=== PATIENT | female | born 1975 | race Hispanic/Latino ===

== ENCOUNTER 2018-03-29 15:40 | Observation (INO) | payer MEDICAID, OTHER ==
[2018-03-29] MEDS ORDERED: Lidocaine 5% Patch TD STA (16:50)
--- NOTE | 2018-03-29 17:00 | ED PDOC ---
Arrival/HPI - General Chief Complaint: Back Pain Time Seen by Provider: 03/29/18 16:31 Historian: Patient - History of Present Illness Narrative History of Present Illness (Text): 03/29/18 16:57 42 yo F with no significant PMH, reports 1 wk h/o pain in the L lower back, which is now radiating to the L leg, reports having similar episodes of back pain, but not an intense as today. Reports taking motrin with minimal relief. Reports no trauma, injury, heavy lifting, IV drug use, recent travel, urinary symptoms, abdominal pain, N/V. Otherwise: (-) paresthesias, (-) weakness, (-) acute bowel or bladder dysfunction, (-) fever. Has history of prior back problem. PMD Vidyha Past Medical History - Infectious Disease Hx of Infectious Diseases: None - Tetanus Immunization Tetanus Immunization: Unknown - Reproductive Menopause: No Currently : No - Past Medical History Past Medical History: No Previous - Cardiac Hx Cardiac Disorders: No - Pulmonary Hx Respiratory Disorders: No - Neurological Hx Neurological Disorder: No - HEENT Hx HEENT Disorder: No - Renal Hx Renal Disorder: No - Endocrine/Metabolic Hx Endocrine Disorders: No - Hematological/Oncological Hx Blood Disorders: No - Integumentary Hx Dermatological Disorder: No - Musculoskeletal/Rheumatological Hx Musculoskeletal Disorders: No - Gastrointestinal Hx Gastrointestinal Disorders: No - Genitourinary/Gynecological Hx Genitourinary Disorders: No - Psychiatric Hx Psychophysiologic Disorder: No Hx Substance Use: No - Past Surgical History Past Surgical History: No Previous - Anesthesia Hx Anesthesia: No - Suicidal Assessment Feels Threatened In Home Enviroment: No Family/Social History Family/Social History: No Known Family HX Smoking Status: Current Some Days Smoker Hx Alcohol Use: Yes Hx Substance Use: No Hx Substance Use Treatment: Yes Allergies/Home Meds Allergies/Adverse Reactions: Allergies Opioids - Morphine Analogues Allergy (Verified 03/29/18 16:49) VOMITING Review of Systems - Review of Systems Constitutional: absent: Fatigue, Fevers Respiratory: absent: SOB, Cough, Sputum Cardiovascular: absent: Chest Pain, Palpitations Gastrointestinal: absent: Abdominal Pain, Nausea, Vomiting Genitourinary Female: absent: Dysuria, Frequency, Hematuria Musculoskeletal: Arthralgias, Back Pain. absent: Neck Pain Skin: absent: Rash, Pruritis, Skin Lesions Neurological: absent: Headache, Dizziness Physical Exam Vital Signs Temp Pulse Resp BP Pulse Ox 03/29/18 15:41 98.2 F 65 18 100/63 97 Temperature: Afebrile Blood Pressure: Normal Pulse: Regular Respiratory Rate: Normal Appearance: Positive for: Well-Appearing, Non-Toxic, Comfortable Pain Distress: Moderate Mental Status: Positive for: Alert and Oriented X 3 - Systems Exam Head: Present: Atraumatic, Normocephalic Pupils: Present: PERRL Extroacular Muscles: Present: EOMI Conjunctiva: Present: Normal Mouth: Present: Moist Mucous Membranes Neck: Present: Normal Range of Motion Respiratory/Chest: Present: Clear to Auscultation, Good Air Exchange. No: Respiratory Distress, Accessory Muscle Use Cardiovascular: Present: Regular Rate and Rhythm, Normal S1, S2. No: Murmurs Abdomen: No: Tenderness, Distention, Peritoneal Signs Back: Present: Normal Inspection, Paraspinal Tenderness (+L paralumbar tenderness), Pain with Leg Raise (+staight leg raise at 30 degrees of the L leg). No: Midline Tenderness Upper Extremity: Present: Normal Inspection. No: Cyanosis, Edema Lower Extremity: Present: Normal Inspection. No: Edema Neurological: Present: GCS=15, CN II-XII Intact, Speech Normal, Motor Func Grossly Intact, Normal Sensory Function Skin: Present: Warm, Dry, Normal Color. No: Rashes Psychiatric: Present: Alert, Oriented x 3, Normal Insight, Normal Concentration Medical Decision Making ED Course and Treatment: 03/29/18 16:57 42 yo F c/o low back pain radiating to the L leg, likely sciatica. Plan : - toradol IM - lidoderm patch - flexeril PO 03/29/18 17:39 On re-evaluation, patient reports mild improvement of symptoms, still reports of pain with movement. On exam, patient remains AAOx3, in no acute distress, talking on her cell phone. Repeat neuro exam shows no focal findings. Patient states that she is not allergic to narcotics, she said once she was given morphine and felt nauseous, reports no rash, facial/tongue swelling. Given percocet po. 03/29/18 19:04 Patient laying in bed comfortably, she reports that she still has pain going down her L leg, unimproved after taking percocet, states that she has difficulty standing, however she is able to move her legs on the bed and has normal sensation to b/l LE. Labs, UA, XRs, morphine 4 mg IV and zofran 4 mg IV ordered. Case d/w medical assisting instructor and with Dr. Villalobos, agrees with plan for observation, under the hospitalist service. Patient agrees with plan to observation stay. 03/29/18 21:30 Labs reviewed and wnl. Patient went to XR. 03/29/18 23:45 XR L spine : no fracture, as read by PA. XR L hip : no fracture, no dislocation, as read by PA. - Medication Orders Current Medication Orders: Discontinued Medications Cyclobenzaprine HCl (Flexeril) 10 mg PO STAT STA Stop: 03/29/18 16:51 Ketorolac Tromethamine (Toradol) 60 mg IM STAT STA Stop: 03/29/18 16:51 Lidocaine (Lidoderm) 1 ea TD STAT STA Stop: 03/29/18 16:51 - PA / LIFE ENRICHMENT ASSISTANT / Resident Statement MD/DO has reviewed & agrees with the documentation as recorded. Disposition/Present on Arrival - Present on Arrival Any Indicators Present on Arrival: No History of DVT/PE: No History of Uncontrolled Diabetes: No Urinary Catheter: No History of Decub. Ulcer: No History Surgical Site Infection Following: None - Disposition Have Diagnosis and Disposition been Completed?: Yes Diagnosis: Sciatica, Intractable low back pain Disposition: HOSPITALIZED Disposition Time: 19:00 Patient Plan: Observation Patient Problems: Current Active Problems Problem Status Onset Sciatica Acute Intractable low back pain Acute Condition: STABLE
[2018-03-29] MEDS ORDERED: Oxycodone/Acetaminophen 5/325 mg Tab PO STA ×2 (17:39→17:40)
[2018-03-29] MEDS ORDERED: Morphine 4 mg/ml ISec IVP STA (19:02)
[2018-03-29 20:08] LABS: BASO # 0.02 K/mm3 (0.0-2.0); BASO % 0.2 % (0.0-3.0); EOS # 0.2 (0.0-0.7); EOS % 2.1 % (1.5-5.0); HEMOGLOBIN 12.8 g/dL (12.0-16.0); LYMPH # 3.4 (1.2-3.4); LYMPH % 34.9 % (22.0-35.0); MEAN CELL VOLUME 96.3 fl (80.0-105.0); MEAN CORPUSCULAR HEMOGLOBIN 31.3 pg (25.0-35.0); MEAN CORPUSCULAR HGB CONC 32.5 g/dl (31.0-37.0); MEAN PLATELET VOLUME 10.6 fl (7.0-11.0); MONO # 0.7 (0.1-0.6); RBC 4.09 10^6/uL (3.5-6.1); RED CELL DISTRIBUTION WIDTH 13.9 % (11.5-14.5); WHITE BLOOD COUNT 9.6 10^3/uL (4.5-11.0)
[2018-03-29 20:18] LABS: ALB/GLOB RATIO 1.4 (1.1-1.8); ALBUMIN 3.7 g/dL (3.0-4.8); ALT/SGPT 12 U/L (7-56); AST/SGOT 17 U/L (14-36); BLOOD UREA NITROGEN 13 mg/dL (7-21); CALCIUM 8.9 mg/dL (8.4-10.5); GFR NON-AFRICAN AMERICAN > 60
[2018-03-29 21:22] LABS: URINE APPEARANCE CLEAR (CLEAR); URINE BILIRUBIN NEGATIVE (NEGATIVE); URINE BLOOD NEGATIVE (NEGATIVE); URINE COLOR YELLOW (YELLOW); URINE GLUCOSE (UA) NEGATIVE (NEGATIVE); URINE LEUKOCYTE ESTERASE NEGATIVE Leu/uL (NEGATIVE); URINE PROTEIN NEGATIVE mg/dL (<30 mg/dL); URINE UROBILINOGEN 0.2 E.U./dL (<1 E.U./dL)
[2018-03-29 22:32] VITALS: BMI 28.8
--- NOTE | 2018-03-30 01:33 | CP.PCM.HP ---
<Lauro Kaufman - Last Filed: 03/30/18 06:18> History of Present Illness - History of Present Illness History of Present Illness: Resident History & Physical for Hospitalist Service Patient is a 42 year old female with no significant past medical history presenting with chief complaint of left leg pain that first began three weeks ago and acutely worsened in severity last night, waking her up from sleep. Pain is sharp, intermittent, and begins in left lumbar region and radiates down her left lower extremity. She states that lying supine alleviates the pain and any movement aggravates it. Severity level is rated +10/10. She has tried Motrin with minimal relief. Denies trauma, sensation changes, fever, chills, chest pain, shortness of breath, abdominal pain, diarrhea, dysuria. PMH: none PSH: none SHx: smokes 1/2 PPD for past 20 years, social alcohol, denies illicit drug use FHx: denies Allergies: opiods PMD: none Present on Admission - Present on Admission Any Indicators Present on Admission: No Review of Systems - Review of Systems All systems: reviewed and no additional remarkable complaints except (as per HPI) Past Patient History - Infectious Disease Hx of Infectious Diseases: None - Tetanus Immunizations Tetanus Immunization: Unknown - Past Social History Smoking Status: Current Some Days Smoker - CARDIAC Hx Cardiac Disorders: No - PULMONARY Hx Respiratory Disorders: No - NEUROLOGICAL Hx Neurological Disorder: No - HEENT Hx HEENT Problems: No - RENAL Hx Chronic Kidney Disease: No - ENDOCRINE/METABOLIC Hx Endocrine Disorders: No - HEMATOLOGICAL/ONCOLOGICAL Hx Blood Disorders: No - INTEGUMENTARY Hx Dermatological Problems: No - MUSCULOSKELETAL/RHEUMATOLOGICAL Hx Musculoskeletal Disorders: No - GASTROINTESTINAL Hx Gastrointestinal Disorders: No - GENITOURINARY/GYNECOLOGICAL Hx Genitourinary Disorders: No - PSYCHIATRIC Hx Psychophysiologic Disorder: No Hx Substance Use: No - SURGICAL HISTORY Hx Surgeries: No - ANESTHESIA Hx Anesthesia: No Meds Allergies/Adverse Reactions: Allergies Allergy/AdvReac Type Severity Reaction Status Date / Time Opioids - Morphine Analogues Allergy VOMITING Verified 03/29/18 16:49 Physical Exam - Constitutional Appears: Non-toxic, No Acute Distress - Head Exam Head Exam: ATRAUMATIC, NORMOCEPHALIC - Eye Exam Eye Exam: EOMI, Normal appearance, PERRL - ENT Exam ENT Exam: Mucous Membranes Moist - Respiratory Exam Respiratory Exam: Clear to Auscultation Bilateral, NORMAL BREATHING PATTERN. absent: Rales, Rhonchi, Wheezes - Cardiovascular Exam Cardiovascular Exam: REGULAR RHYTHM, +S1, +S2. absent: Systolic Murmur - GI/Abdominal Exam GI & Abdominal Exam: Normal Bowel Sounds, Soft. absent: Distended, Firm, Guarding, Tenderness - Extremities Exam Extremities exam: Positive for: normal capillary refill, pedal pulses present. Negative for: pedal edema, tenderness Additional comments: positive straight leg raising test on the left - Neurological Exam Neurological exam: Alert, CN II-XII Intact, Oriented x3 - Psychiatric Exam Psychiatric exam: Normal Affect, Normal Mood - Skin Skin Exam: Dry, Intact, Normal Color, Warm Results - Vital Signs Recent Vital Signs: Last Vital Signs Temp 98.2 F 03/29/18 15:41 Pulse 73 03/29/18 21:14 Resp 20 03/29/18 22:00 BP 119/78 03/29/18 21:14 Pulse Ox 98 03/29/18 21:14 - Labs Result Diagrams: 03/29/18 20:01 03/29/18 20:01 Labs: Laboratory Results - last 24 hr 03/29/18 03/29/18 03/29/18 20:01 20:01 21:10 WBC 9.6 RBC 4.09 Hgb 12.8 Hct 39.4 MCV 96.3 MCH 31.3 MCHC 32.5 RDW 13.9 Plt Count 196 MPV 10.6 Neut % (Auto) 55.8 Lymph % (Auto) 34.9 [place] % (Auto) 7.0 H Eos % (Auto) 2.1 Baso % (Auto) 0.2 Lymph # (Auto) 3.4 [place] # (Auto) 0.7 H Eos # (Auto) 0.2 Baso # (Auto) 0.02 Absolute Neuts (auto) 5.39 Sodium 138 Potassium 4.0 Chloride 109 H Carbon Dioxide 26 Anion Gap 8 L BUN 13 Creatinine 0.7 Est GFR ( Amer) > 60 Est GFR (Non-Af Amer) > 60 Random Glucose 97 Calcium 8.9 Total Bilirubin 0.1 L AST 17 ALT 12 Alkaline Phosphatase 41 Total Protein 6.3 Albumin 3.7 Globulin 2.7 Albumin/Globulin Ratio 1.4 Urine Color Yellow Urine Appearance Clear Urine pH 6.0 Ur Specific [place] 1.025 Urine Protein Negative Urine Glucose (UA) Negative Urine Ketones Trace H Urine Blood Negative Urine Nitrate Negative Urine Bilirubin Negative Urine Urobilinogen 0.2 Ur Leukocyte Esterase Negative Assessment & Plan - Assessment and Plan (Free Text) Assessment: Patient is a 42 year old female with no significant past medical history pr esenting with chief complaint of back pain. Plan: Left leg pain - pelvis and spine x-rays unremarkable - Toradol 15 mg IV Q6H PRN for pain - Flexeril 5 mg PO TID - PT eval - followup CT lumbar spine PPX - Lovenox, Protonix Case discussed with Dr. Angela Kaufman PGY-1 <Arti Miller - Last Filed: 03/30/18 07:58> Results - Vital Signs Recent Vital Signs: Last Vital Signs Temp 98.2 F 03/29/18 15:41 Pulse 73 03/29/18 21:14 Resp 20 03/29/18 22:00 BP 90/50 L 03/30/18 06:00 Pulse Ox 98 03/29/18 21:14 - Labs Result Diagrams: 03/30/18 06:00 03/30/18 06:00 Labs: Laboratory Results - last 24 hr 03/29/18 03/29/18 03/29/18 20:01 20:01 21:10 WBC 9.6 RBC 4.09 Hgb 12.8 Hct 39.4 MCV 96.3 MCH 31.3 MCHC 32.5 RDW 13.9 Plt Count 196 MPV 10.6 Neut % (Auto) 55.8 Lymph % (Auto) 34.9 [place] % (Auto) 7.0 H Eos % (Auto) 2.1 Baso % (Auto) 0.2 Lymph # (Auto) 3.4 [place] # (Auto) 0.7 H Eos # (Auto) 0.2 Baso # (Auto) 0.02 Absolute Neuts (auto) 5.39 Sodium 138 Potassium 4.0 Chloride 109 H Carbon Dioxide 26 Anion Gap 8 L BUN 13 Creatinine 0.7 Est GFR ( Amer) > 60 Est GFR (Non-Af Amer) > 60 Random Glucose 97 Calcium 8.9 Phosphorus Magnesium Total Bilirubin 0.1 L AST 17 ALT 12 Alkaline Phosphatase 41 Total Protein 6.3 Albumin 3.7 Globulin 2.7 Albumin/Globulin Ratio 1.4 Urine Color Yellow Urine Appearance Clear Urine pH 6.0 Ur Specific [place] 1.025 Urine Protein Negative Urine Glucose (UA) Negative Urine Ketones Trace H Urine Blood Negative Urine Nitrate Negative Urine Bilirubin Negative Urine Urobilinogen 0.2 Ur Leukocyte Esterase Negative 03/30/18 03/30/18 06:00 06:00 WBC 6.8 D RBC 3.99 Hgb 12.1 Hct 38.7 MCV 97.0 MCH 30.3 MCHC 31.3 RDW 14.0 Plt Count 185 MPV 10.7 Neut % (Auto) 47.9 L Lymph % (Auto) 36.8 H [place] % (Auto) 12.3 H Eos % (Auto) 2.7 Baso % (Auto) 0.3 Lymph # (Auto) 2.5 [place] # (Auto) 0.8 H Eos # (Auto) 0.2 Baso # (Auto) 0.02 Absolute Neuts (auto) 3.25 Sodium 139 Potassium 3.9 Chloride 109 H Carbon Dioxide 27 Anion Gap 8 L BUN 14 Creatinine 0.7 Est GFR ( Amer) > 60 Est GFR (Non-Af Amer) > 60 Random Glucose 94 Calcium 8.8 Phosphorus 3.7 Magnesium 2.2 Total Bilirubin 0.3 AST 16 ALT 13 Alkaline Phosphatase 38 Total Protein 6.5 Albumin 3.7 Globulin 2.8 Albumin/Globulin Ratio 1.3 Urine Color Urine Appearance Urine pH Ur Specific [place] Urine Protein Urine Glucose (UA) Urine Ketones Urine Blood Urine Nitrate Urine Bilirubin Urine Urobilinogen Ur Leukocyte Esterase Attending/Attestation - Attestation I have personally seen and examined this patient.: Yes I have fully participated in the care of the patient.: Yes I have reviewed all pertinent clinical information: Yes Notes (Text): 03/30/18 07:52 Note: Pt 's chief complaint is L leg pain,not back pain as noted in the assessment. Pt seen with the resident by the bedside. Case discussed in detail. Agree with rest of documentation,assessment and orders placed.
[2018-03-30 06:46] LABS: BASO # 0.02 K/mm3 (0.0-2.0); BASO % 0.3 % (0.0-3.0); EOS # 0.2 (0.0-0.7); EOS % 2.7 % (1.5-5.0); HEMOGLOBIN 12.1 g/dL (12.0-16.0); LYMPH # 2.5 (1.2-3.4); LYMPH % 36.8 % (22.0-35.0); MEAN CORPUSCULAR HEMOGLOBIN 30.3 pg (25.0-35.0); MEAN CORPUSCULAR HGB CONC 31.3 g/dl (31.0-37.0); MEAN PLATELET VOLUME 10.7 fl (7.0-11.0); MONO # 0.8 (0.1-0.6); MONO % 12.3 % (1.0-6.0); RBC 3.99 10^6/uL (3.5-6.1); WHITE BLOOD COUNT 6.8 10^3/uL (4.5-11.0)
[2018-03-30 06:47] LABS: ALB/GLOB RATIO 1.3 (1.1-1.8); ALBUMIN 3.7 g/dL (3.0-4.8); ALT/SGPT 13 U/L (7-56); AST/SGOT 16 U/L (14-36); BLOOD UREA NITROGEN 14 mg/dL (7-21); CALCIUM 8.8 mg/dL (8.4-10.5); GFR NON-AFRICAN AMERICAN > 60
[2018-03-30 08:11] VITALS: BP 92/52; PULSE 53; RESP 19; TEMP 97.8; O2SAT 96
[2018-03-30] MEDS ORDERED: Enoxaparin 40 mg Syringe SC SCH (10:00)
--- NOTE | 2018-03-30 10:07 | CT ---
Date of service: 03/30/2018 PROCEDURE: CT Lumbar Spine without contrast HISTORY: leg pain COMPARISON: None available. TECHNIQUE: Axial computed tomography images were obtained of the lumbar spine without the use of intravenous contrast. Coronal and sagittal reformatted images were created and reviewed. Radiation dose: Total exam DLP = 902.7 mGy-cm. This CT exam was performed using one or more of the following dose reduction techniques: Automated exposure control, adjustment of the mA and/or kV according to patient size, and/or use of iterative reconstruction technique. FINDINGS: VERTEBRAE: Unremarkable. No fracture. Normal alignment. DISCS/SPINAL CANAL/NEURAL FORAMINA: L1-2: Unremarkable. L2-3: Unremarkable. L3-4: Unremarkable. L4-5: There is a small central disc protrusion at L4-5 L5-S1: There is an asymmetric disc bulge an osteophyte formation to the left at L5-S1 with moderate left-sided foraminal stenosis PARASPINAL SOFT TISSUES: Unremarkable. OTHER FINDINGS: None. IMPRESSION: L4-5: There is a small central disc protrusion at L4-5 L5-S1: There is an asymmetric disc bulge an osteophyte formation to the left at L5-S1 with moderate left-sided foraminal stenosis
--- NOTE | 2018-03-30 10:58 | RAD ---
Date of service: 03/29/2018 PROCEDURE: Pelvis and left hip HISTORY: pain COMPARISON: TECHNIQUE: Four views FINDINGS: There are no significant degenerative changes. No evidence of fracture. An IUD is seen in place IMPRESSION: Negative study
--- NOTE | 2018-03-30 10:59 | RAD ---
Date of service: 03/29/2018 PROCEDURE: Radiographs of the Lumbar Spine. HISTORY: pain COMPARISON: No prior. FINDINGS: BONES: Normal alignment. No listhesis. No fracture. DISC SPACES: Unremarkable. OTHER FINDINGS: None. IMPRESSION: Unremarkable radiographs of the lumbar spine.
--- NOTE | 2018-03-30 16:35 | CP.PCM.DIS ---
<AshlynKaleb ricolaurel - Last Filed: 03/30/18 16:25> Provider - Provider Date of Admission: 03/29/18 19:31 Attending physician: Pamela Luis MD Primary care physician: NO PRIMARY CARE PROVIDER Time Spent in preparation of Discharge (in minutes): 60 Diagnosis - Discharge Diagnosis (1) Back pain Status: Acute (2) Intractable low back pain Status: Acute Hospital Course - Lab Results Lab Results: Most Recent Lab Values WBC 6.8 10^3/uL (4.5-11.0) D 03/30/18 06:00 RBC 3.99 10^6/uL (3.5-6.1) 03/30/18 06:00 Hgb 12.1 g/dL (12.0-16.0) 03/30/18 06:00 Hct 38.7 % (36.0-48.0) 03/30/18 06:00 MCV 97.0 fl (80.0-105.0) 03/30/18 06:00 MCH 30.3 pg (25.0-35.0) 03/30/18 06:00 MCHC 31.3 g/dl (31.0-37.0) 03/30/18 06:00 RDW 14.0 % (11.5-14.5) 03/30/18 06:00 Plt Count 185 10^3/uL (120.0-450.0) 03/30/18 06:00 MPV 10.7 fl (7.0-11.0) 03/30/18 06:00 Neut % (Auto) 47.9 % (50.0-68.0) L 03/30/18 06:00 Lymph % (Auto) 36.8 % (22.0-35.0) H 03/30/18 06:00 [place] % (Auto) 12.3 % (1.0-6.0) H 03/30/18 06:00 Eos % (Auto) 2.7 % (1.5-5.0) 03/30/18 06:00 Baso % (Auto) 0.3 % (0.0-3.0) 03/30/18 06:00 Lymph # (Auto) 2.5 (1.2-3.4) 03/30/18 06:00 [place] # (Auto) 0.8 (0.1-0.6) H 03/30/18 06:00 Eos # (Auto) 0.2 (0.0-0.7) 03/30/18 06:00 Baso # (Auto) 0.02 K/mm3 (0.0-2.0) 03/30/18 06:00 Absolute Neuts (auto) 3.25 (1.4-6.5) 03/30/18 06:00 Sodium 139 mmol/L (132-148) 03/30/18 06:00 Potassium 3.9 mmol/L (3.6-5.0) 03/30/18 06:00 Chloride 109 mmol/L (98-107) H 03/30/18 06:00 Carbon Dioxide 27 mmol/L (21-33) 03/30/18 06:00 Anion Gap 8 (10-20) L 03/30/18 06:00 BUN 14 mg/dL (7-21) 03/30/18 06:00 Creatinine 0.7 mg/dl (0.7-1.2) 03/30/18 06:00 Est GFR ( Amer) > 60 03/30/18 06:00 Est GFR (Non-Af Amer) > 60 03/30/18 06:00 Random Glucose 94 mg/dL (70-110) 03/30/18 06:00 Calcium 8.8 mg/dL (8.4-10.5) 03/30/18 06:00 Phosphorus 3.7 mg/dL (2.5-4.5) 03/30/18 06:00 Magnesium 2.2 mg/dL (1.7-2.2) 03/30/18 06:00 Total Bilirubin 0.3 mg/dL (0.2-1.3) 03/30/18 06:00 AST 16 U/L (14-36) 03/30/18 06:00 ALT 13 U/L (7-56) 03/30/18 06:00 Alkaline Phosphatase 38 U/L (38-126) 03/30/18 06:00 Total Protein 6.5 g/dL (5.8-8.3) 03/30/18 06:00 Albumin 3.7 g/dL (3.0-4.8) 03/30/18 06:00 Globulin 2.8 gm/dL 03/30/18 06:00 Albumin/Globulin Ratio 1.3 (1.1-1.8) 03/30/18 06:00 Urine Color Yellow (YELLOW) 03/29/18 21:10 Urine Appearance Clear (CLEAR) 03/29/18 21:10 Urine pH 6.0 (4.7-8.0) 03/29/18 21:10 Ur Specific [place] 1.025 (1.005-1.035) 03/29/18 21:10 Urine Protein Negative mg/dL (<30 mg/dL) 03/29/18 21:10 Urine Glucose (UA) Negative mg/dL (NEGATIVE) 03/29/18 21:10 Urine Ketones Trace mg/dL (NEGATIVE) H 03/29/18 21:10 Urine Blood Negative (NEGATIVE) 03/29/18 21:10 Urine Nitrate Negative (NEGATIVE) 03/29/18 21:10 Urine Bilirubin Negative (NEGATIVE) 03/29/18 21:10 Urine Urobilinogen 0.2 E.U./dL (<1 E.U./dL) 03/29/18 21:10 Ur Leukocyte Esterase Negative Rox/uL (NEGATIVE) 03/29/18 21:10 - Hospital Course Hospital Course: Josh Castaneda, PGY-1, Internal Medicine Discharge Summary for Dr. Luis 42 year old female with no significant past medical history presented with left paraspinal pain that radiated to her left leg. Patient reported that pain started 3 weeks ago and worsened last night, waking her up from her sleep. Pain was burning in the back and when patient leaned forward, shooting pain down the left lower extremity was appreciated. Severity of pain was 10/10 upon admission. She tried motrin with minimal relief. Patient was found to have an allergy to opiod medications such as morphine. Hip/Pelvis, lumbar spine X rays were negative. Lumbar spine CT showed asymmetric disc bulge an of left L5-S1 with moderate left sided foraminal stenosis. In addition, there was a small disc protrusion at L4-L5. Patient was started on flexeril, toradol, and percocet with minor pain relief. Patient was continued on flexeril and toradol through admission. Patient initially was unable to be OOB and ambulate, but today, patient was able to ambulate was out of bed moving without any restriction after pain medication was given. As a result, patient was found to be stable and ready for discharge. Patient was deemed stable and ready for discharge. Patient was told to follow up with PCP in 7-14 days. In addition, patient was told to take all medications as prescribed and to follow up with physical therapy 3-5 times a week for 2 weeks after her pain had subsided. She was told to return to the emergency room if she had any worsening or new pain symptoms. This is a brief summary of the events that transpirated on this hospital admission. For further details, please refer to hospital documentation. - Date & Time of H&P Date of H&P: 03/30/18 Time of H&P: 01:27 Discharge Exam - Head Exam Head Exam: ATRAUMATIC, NORMOCEPHALIC - Eye Exam Eye Exam: EOMI, PERRL - ENT Exam ENT Exam: Mucous Membranes Moist - Respiratory Exam Respiratory Exam: Clear to PA & Lateral, NORMAL BREATHING PATTERN - Cardiovascular Exam Cardiovascular Exam: REGULAR RHYTHM, RRR - GI/Abdominal Exam GI & Abdominal Exam: Normal Bowel Sounds, Soft. absent: Tenderness - Extremities Exam Extremities exam: full ROM - Back Exam Back exam: paraspinal tenderness (with radiation down left leg) - Neurological Exam Neurological exam: Alert, CN II-XII Intact, Oriented x3 - Psychiatric Exam Psychiatric exam: Normal Affect, Normal Mood - Skin Skin Exam: Dry, Intact, Normal Color Discharge Plan - Discharge Medications Prescriptions: Ibuprofen [Motrin] 600 mg PO Q6H PRN #20 tab PRN Reason: Pain, Moderate (4-7) - Follow Up Plan Condition: STABLE Disposition: HOME/ ROUTINE Instructions: Sciatica (DC) Additional Instructions: Please follow up with PCP in 7-14 days. Patient will need home with services with outpatient PT 3-5x a week for 2 weeks after patient can tolerate pain. Please take all medications as prescribed. Please return to the emergency department if you have any new or concerning symptoms. Referrals: [facility] [Outside] PCP,NO [Primary Care Provider] - <Pamela Luis - Last Filed: 03/30/18 19:06> Provider - Provider Date of Admission: 03/29/18 19:31 Attending physician: Pamela Luis MD Primary care physician: NO PRIMARY CARE PROVIDER Hospital Course - Lab Results Lab Results: Most Recent Lab Values WBC 6.8 10^3/uL (4.5-11.0) D 03/30/18 06:00 RBC 3.99 10^6/uL (3.5-6.1) 03/30/18 06:00 Hgb 12.1 g/dL (12.0-16.0) 03/30/18 06:00 Hct 38.7 % (36.0-48.0) 03/30/18 06:00 MCV 97.0 fl (80.0-105.0) 03/30/18 06:00 MCH 30.3 pg (25.0-35.0) 03/30/18 06:00 MCHC 31.3 g/dl (31.0-37.0) 03/30/18 06:00 RDW 14.0 % (11.5-14.5) 03/30/18 06:00 Plt Count 185 10^3/uL (120.0-450.0) 03/30/18 06:00 MPV 10.7 fl (7.0-11.0) 03/30/18 06:00 Neut % (Auto) 47.9 % (50.0-68.0) L 03/30/18 06:00 Lymph % (Auto) 36.8 % (22.0-35.0) H 03/30/18 06:00 [place] % (Auto) 12.3 % (1.0-6.0) H 03/30/18 06:00 Eos % (Auto) 2.7 % (1.5-5.0) 03/30/18 06:00 Baso % (Auto) 0.3 % (0.0-3.0) 03/30/18 06:00 Lymph # (Auto) 2.5 (1.2-3.4) 03/30/18 06:00 [place] # (Auto) 0.8 (0.1-0.6) H 03/30/18 06:00 Eos # (Auto) 0.2 (0.0-0.7) 03/30/18 06:00 Baso # (Auto) 0.02 K/mm3 (0.0-2.0) 03/30/18 06:00 Absolute Neuts (auto) 3.25 (1.4-6.5) 03/30/18 06:00 Sodium 139 mmol/L (132-148) 03/30/18 06:00 Potassium 3.9 mmol/L (3.6-5.0) 03/30/18 06:00 Chloride 109 mmol/L (98-107) H 03/30/18 06:00 Carbon Dioxide 27 mmol/L (21-33) 03/30/18 06:00 Anion Gap 8 (10-20) L 03/30/18 06:00 BUN 14 mg/dL (7-21) 03/30/18 06:00 Creatinine 0.7 mg/dl (0.7-1.2) 03/30/18 06:00 Est GFR ( Amer) > 60 03/30/18 06:00 Est GFR (Non-Af Amer) > 60 03/30/18 06:00 Random Glucose 94 mg/dL (70-110) 03/30/18 06:00 Calcium 8.8 mg/dL (8.4-10.5) 03/30/18 06:00 Phosphorus 3.7 mg/dL (2.5-4.5) 03/30/18 06:00 Magnesium 2.2 mg/dL (1.7-2.2) 03/30/18 06:00 Total Bilirubin 0.3 mg/dL (0.2-1.3) 03/30/18 06:00 AST 16 U/L (14-36) 03/30/18 06:00 ALT 13 U/L (7-56) 03/30/18 06:00 Alkaline Phosphatase 38 U/L (38-126) 03/30/18 06:00 Total Protein 6.5 g/dL (5.8-8.3) 03/30/18 06:00 Albumin 3.7 g/dL (3.0-4.8) 03/30/18 06:00 Globulin 2.8 gm/dL 03/30/18 06:00 Albumin/Globulin Ratio 1.3 (1.1-1.8) 03/30/18 06:00 Urine Color Yellow (YELLOW) 03/29/18 21:10 Urine Appearance Clear (CLEAR) 03/29/18 21:10 Urine pH 6.0 (4.7-8.0) 03/29/18 21:10 Ur Specific [place] 1.025 (1.005-1.035) 03/29/18 21:10 Urine Protein Negative mg/dL (<30 mg/dL) 03/29/18 21:10 Urine Glucose (UA) Negative mg/dL (NEGATIVE) 03/29/18 21:10 Urine Ketones Trace mg/dL (NEGATIVE) H 03/29/18 21:10 Urine Blood Negative (NEGATIVE) 03/29/18 21:10 Urine Nitrate Negative (NEGATIVE) 03/29/18 21:10 Urine Bilirubin Negative (NEGATIVE) 03/29/18 21:10 Urine Urobilinogen 0.2 E.U./dL (<1 E.U./dL) 03/29/18 21:10 Ur Leukocyte Esterase Negative Rox/uL (NEGATIVE) 03/29/18 21:10 Attending/Attestation - Attestation I have personally seen and examined this patient.: Yes I have fully participated in the care of the patient.: Yes I have reviewed all pertinent clinical information, including history, physical exam and plan: Yes Notes (Text): 03/30/18 18:59 42 year old female with no significant past medical history who presented with back pain radiating to left leg. Xrays were negative. CT scan showed asymmetric disc bulge on the left L5-S1 and small disc protusion at L4-L5. She was seen by PT who recommended home with services. She was started on flexeral and toradol. She initially complained of severe pain being unable to ambulate. However later during the day when she did not receive any percocet or morphine she got up and rushed out per nurse, refused to sign d/c paper work. Pamela Luis MD Hospitalist.
[2018-03-31] MEDS ORDERED: Pantoprazole 40 mg EC Tab PO SCH (07:30)
== END 2018-03-30 14:40 | disposition home or self-care (01) ==
LOC: ED 15:40 → ERH 19:31 → 3RNO 22:04
PROVIDERS: ADMIT Internal Medicine; ATTEND Internal Medicine
DX: M48.07 Spinal stenosis, lumbosacral region (principal); M51.26 Other intervertebral disc displacement, lumbar region; M54.40 Lumbago with sciatica, unspecified side; F17.210 Nicotine dependence, cigarettes, uncomplicated; Z88.5 Allergy status to narcotic agent; M79.605 Pain in left leg
CPT/HCPCS: 36415; 72110; 72131; 73502; 80053; 81003; 81025; 83735; 84100; 85025; 96372; 96374; 96375; 97161; 97530; 99285; C9113; G0378; G8978; G8979; J1650; J1885; J2270; J2405

== ENCOUNTER 2018-03-31 11:23 | Emergency (ER) | payer MEDICAID ==
[2018-03-31 11:24] VITALS: BMI 28.8
[2018-03-31] MEDS ORDERED: Lidocaine 5% Patch TD ONE (11:33)
[2018-03-31 11:39] VITALS: RESP 18; TEMP 98.6
--- NOTE | 2018-03-31 12:18 | ED PDOC ---
Arrival/HPI - General Chief Complaint: Back Pain Time Seen by Provider: 03/31/18 11:29 Historian: Patient - History of Present Illness Narrative History of Present Illness (Text): 03/31/18 12:11 42F w/ h/o sciatica presents to the Emergency Room with complaint of left sided back pain. She describes the pain as originating in the left gluteal region, radiating down towards her left leg, worsened with ambulation. The patient sta mona she was ambulating outside when she sustained a mechanical fall onto the snow inadvertently. She reports presyncopal episode as a result of the pain on her left side. She denies LOC, head injury or neck pain, but reports worsening of the back pain after arising. She reports being seen in the Emergency Room on 03/29/18 where she was diagnosed with sciatica and discharged with Motrin in which she took for pain this morning. She denies chest pain, shortness of breath, dizziness, cough, fever, dysuria, constipation, diarrhea, nausea or emesis at this time. Time/Duration: Prior to Arrival Symptom Onset: Sudden Symptom Course: Unchanged Activities at Onset: Rest Context: Walking, Street Past Medical History - Provider Review Nursing Documentation Reviewed: Yes - Travel History Have you recently traveled outside [place] w/in the past 3 mons?: No - Infectious Disease Hx of Infectious Diseases: None - Tetanus Immunization Tetanus Immunization: Unknown - Reproductive Menopause: No Currently : No - Past Medical History Past Medical History: No Previous - Cardiac Hx Cardiac Disorders: No - Pulmonary Hx Respiratory Disorders: No - Neurological Hx Neurological Disorder: No - HEENT Hx HEENT Disorder: No - Renal Hx Renal Disorder: No - Endocrine/Metabolic Hx Endocrine Disorders: No - Hematological/Oncological Hx Blood Disorders: No - Integumentary Hx Dermatological Disorder: No - Musculoskeletal/Rheumatological Hx Musculoskeletal Disorders: No - Gastrointestinal Hx Gastrointestinal Disorders: No - Genitourinary/Gynecological Hx Genitourinary Disorders: No - Psychiatric Hx Psychophysiologic Disorder: No Hx Substance Use: No - Past Surgical History Past Surgical History: No Previous - Anesthesia Hx Anesthesia: No - Suicidal Assessment Feels Threatened In Home Enviroment: No Family/Social History - Physician Review Nursing Documentation Reviewed: Yes Family/Social History: Unknown Family HX Smoking Status: Current Some Days Smoker Hx Alcohol Use: Yes Hx Substance Use: No Hx Substance Use Treatment: Yes Allergies/Home Meds Allergies/Adverse Reactions: Allergies Opioids - Morphine Analogues Allergy (Verified 03/29/18 16:49) VOMITING Review of Systems - Physician Review All systems were reviewed & negative as marked: Yes - Review of Systems Musculoskeletal: Back Pain, Myalgias Physical Exam Vital Signs Reviewed: Yes Vital Signs Temp Pulse Resp BP Pulse Ox 03/31/18 11:33 98.6 F 73 18 105/50 L 99 Temperature: Afebrile Blood Pressure: Hypotensive Pulse: Regular Respiratory Rate: Normal Appearance: Positive for: Well-Appearing, Non-Toxic, Comfortable Mental Status: Positive for: Alert and Oriented X 3 - Systems Exam Head: Present: Atraumatic, Normocephalic Pupils: Present: PERRL Extroacular Muscles: Present: EOMI Conjunctiva: Present: Normal Mouth: Present: Moist Mucous Membranes Neck: Present: Normal Range of Motion Respiratory/Chest: Present: Clear to Auscultation, Good Air Exchange. No: Respiratory Distress Cardiovascular: Present: Regular Rate and Rhythm, Normal S1, S2 Abdomen: Present: Normal Bowel Sounds. No: Tenderness, Distention Upper Extremity: Present: Normal Inspection. No: Edema Lower Extremity: Present: Normal Inspection, NORMAL PULSES, Neurovascularly Intact, Other (+ straight leg test on the left) Neurological: Present: GCS=15, Speech Normal, Normal Sensory Function Skin: Present: Warm, Dry, Normal Color Psychiatric: Present: Alert, Oriented x 3, Normal Insight, Normal Concentration Medical Decision Making ED Course and Treatment: 03/31/18 12:21 Impression 42F Differential Diagnoses Includes But Is Not Limited To Plan Progress Notes 03/31/18 12:49 Patient reevaluated and feels better. 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 Patient understands she must use conservative methods in managing her symptoms. Scripts provided. She is stable for discharge. - EKG Interpretation EKG Interpretation (Text): 03/31/18 11:47 EKG reviewed, shows NSR @ 79 bpm, No ST elevations, No T wave inversions. Interpreted by ED Physician: Yes Type: 12 lead EKG - Medication Orders Current Medication Orders: Discontinued Medications Diazepam (Valium) 5 mg PO ONCE ONE; Protocol Stop: 03/31/18 11:34 Ketorolac Tromethamine (Toradol) 60 mg IM STAT STA Stop: 03/31/18 11:34 Lidocaine (Lidoderm) 1 ea TD ONCE ONE Stop: 03/31/18 11:34 Disposition/Present on Arrival - Present on Arrival Any Indicators Present on Arrival: No History of DVT/PE: No History of Uncontrolled Diabetes: No Urinary Catheter: No History of Decub. Ulcer: No History Surgical Site Infection Following: None - Disposition Have Diagnosis and Disposition been Completed?: Yes Diagnosis: Sciatica Disposition: HOME/ ROUTINE Disposition Time: 12:51 Patient Plan: Discharge Condition: IMPROVED Discharge Instructions (ExitCare): Sciatica (DC) Print Language: CROATIAN Additional Instructions: Please follow up with your PCP in 3-5 days Please try to schedule an appointment with the pain management specialists as soon as possible Please avoid manual labor or operating any heavy machinery for about 4 hours after taking Valium Please take Naproxen every 6 hours with food for pain Prescriptions: Diazepam [Valium] 2 mg PO PRN PRN #4 tablet PRN Reason: Muscle Spasm Lidocaine 5% [Lidoderm] 1 ea TD Q12 #5 patch Naproxen [Naprosyn Tab] 250 mg PO Q6H #12 tab Referrals: Reynaldo Duarte MD [Primary Care Provider] - Follow up with primary Jyoti Zuluaga MD [Medical Doctor] - Follow up with primary Leeroy Holley MD [Medical Doctor] - Follow up with primary Forms: [employer] (Dutch)
[2018-03-31 13:31] VITALS: BP 111/54; PULSE 71; O2SAT 100
--- NOTE | 2018-03-31 21:35 | CARD ---
APPROVED REPORT Date of service: 03/31/2018 EKG Measurement Heart [id number] <Conclusion> Normal sinus rhythm with sinus arrhythmia Normal ECG
== END 2018-03-31 13:30 | disposition home or self-care (01) ==
LOC: ED 11:23
DX: M54.30 Sciatica, unspecified side (principal)
CPT/HCPCS: 81025; 93005; 96372; 99282; J1885